=== PATIENT | female | born 1935 | race Caucasian/White ===

== ENCOUNTER 2019-01-21 11:45 | Emergency (ER) | payer MEDICARE, BC ==
[~2019-01-21] VITALS: Ht 160 cm; Wt 72.6 kg
[2019-01-21] MEDS ORDERED: HYDROCODONE/APAP 5-325MG TABLET PO ONE (12:30)
[2019-01-21] MEDS ORDERED: HYDROCODONE/APAP 5-325MG TABLET ONE (12:31)
--- NOTE | 2019-01-21 15:27 | NUR ---
Patient discharged to home in stable conditon. Written and verbal after care instructions given. Patient verbalizes understanding of instructions.PT ACCOMPANIED BY CAREGIVER AND .
== END 2019-01-21 15:29 | disposition home or self-care (01) ==
LOC: ER 11:45
DX: M79.604 Pain in right leg (principal); F32.9 Major depressive disorder, single episode, unspecified; E11.9 Type 2 diabetes mellitus without complications; Z88.0 Allergy status to penicillin; Z88.8 Allergy status to other drugs, medicaments and biological substances; Z86.73 Personal history of transient ischemic attack (TIA), and cerebral infarction without residual deficits
CPT/HCPCS: A4663